=== PATIENT | female | born 1975 | race Caucasian/White ===

== ENCOUNTER 2021-05-02 06:51 | Day surgery (SDC) | payer OTHER ==
[~2021-05-02] VITALS: Ht 182.9 cm; Wt 117.0 kg
[2021-05-02] MEDS ORDERED: MIDAZOLAM 5 MG/5 ML VIAL ONE (08:49)
[2021-05-02] MEDS ORDERED: MIDAZOLAM 2 MG/2 ML VIAL IVP ONE (10:00)
== END 2021-05-02 09:40 | disposition home or self-care (01) ==
LOC: MDS 06:51 → MMU 06:55 → MDS 09:40
PROVIDERS: ATTEND Internal Medicine Gastroenterology
DX: R10.13 Epigastric pain (principal); K21.9 Gastro-esophageal reflux disease without esophagitis; E66.01 Morbid (severe) obesity due to excess calories; Z68.41 Body mass index [BMI] 40.0-44.9, adult; Z79.899 Other long term (current) drug therapy; Z20.822 Contact with and (suspected) exposure to COVID-19
CPT/HCPCS: 36415; 43239; 81025; 86677; J2250